=== PATIENT | female | born 1960 ===

== ENCOUNTER 2018-03-13 05:00 | Day surgery (SDC) | payer OTHER ==
[~2018-03-13 05:00] MED LIST: LOSARTAN POTASS50 MG
[2018-03-13] MEDS ORDERED: PERCOCET 5-3251 EACH PO (09:53)
[2018-03-13] MEDS ORDERED: COLACE100 MG PO (09:53)
== END 2018-03-13 17:35 | disposition home or self-care (01) ==
LOC: CIR.AMB 05:00
DX: K64.8 Other hemorrhoids (principal); K64.4 Residual hemorrhoidal skin tags